=== PATIENT | male | born 1975 | race Caucasian/White ===

== ENCOUNTER 2020-08-24 07:12 | Emergency (ER) | payer OTHER, SELFPAY ==
[2020-08-24] VITALS (8 sets, daily range): BP systolic 118–145; BP diastolic 85–98; PULSE 80–95; RESP 12–18; TEMP 36.8; O2SAT 93–97; BMI 38.6
--- NOTE | 2020-08-24 07:20 | XR_ITS ---
WS: [id number] PORTABLE CHEST HISTORY: chest pain COMPARISON: None available. Lungs are clear and well expanded. No pleural effusion or pneumothorax. Cardiac size: Normal. Mediastinum/Aorta: Normal mediastinum. No osseous abnormality seen. XR/XR chest 1V portable [id number] IMPRESSION: Unremarkable portable chest.
--- NOTE | 2020-08-24 07:21 | ECG_ITS ---
[facility] Test Date: 2020-08-24 Pat Name: Tony Jang Department: Room: Gender: Male Stranner: : 1975 Requested By: Carlos Padgett Order Number: [id number] Reading MD: JEFFREY RYDER Measurements Intervals [place] Rate: 91 P: ND: QRS: 63 QRSD: 101 T: 31 QT: 357 QTc: 440 Interpretive Statements ATRIAL FIBRILLATION POSSIBLE RIGHT VENTRICULAR CONDUCTION DELAY [RSR (QR) IN V1/V2] EARLY REPOLARIZATION [ST ELEVATION WITH NORMALLY INFLECTED T WAVE] ABNORMAL RHYTHM ECG No previous ECG available for comparison Electronically Signed On 08-24-2020 19:58:56 CONTRACT PROJECT MANAGER by JEFFREY RYDER [id number]
--- NOTE | 2020-08-24 07:22 | ED_ITS ---
HPI - Chest Pain General: Chief Complaint: Chest Pain Stated Complaint: CP Time Seen by Provider: 08/24/20 07:14 History of Present Illness: HPI narrative: 45-year-old male presents with complaint of chest pain. States he woke up early this morning had chest pain more on the right side is very positional. He got up and sat up in a chair which did seem to help it somewhat when I examined him today when I laid him down flat exams abdomen significant increase in discomfort which is relieved immediately by sitting up. He did have an episode like this once previously a few weeks ago it resolved over time. He has a known history of atrial fibrillation for which she was previously on Coumadin and he has stopped. He denies any racing heart rate or palpitations at this time there is no radiation of discomfort into the neck or arms or into the back. He has not had any associated shortness of breath or nausea or diaphoresis. MD complaint: chest pain and chest discomfort Pertinent past history: other (Atrial fibrillation) Onset (ago): hour(s) Timing of current episode: episodic Prior episodes: Yes Onset: during rest Pain location: substernal and right chest Pain radiation: none Severity: moderate Quality: tightness and heaviness Relieving factors: nothing Exacerbating factors: nothing Associated symptoms: Deny abdominal pain, diaphoresis, dyspnea, fever(s), leg edema, nausea, palpitations, sense of impending doom, syncope or vomiting Treatment prior to arrival: none Review of Systems Const: Denies: fever(s) or diaphoresis ENMT: Denies: throat pain, ear or mastoid pain, nasal discharge or nasal congestion Card: Denies: palpitations or syncope Resp: Denies: dyspnea GI: Denies: abdominal pain, nausea or vomiting : Denies: flank pain, dysuria, urinary frequency or urinary urgency Skin/Breast: Denies: rash or pruritus [facility] ED PFSH: Medical History (Updated 08/24/20 @ 10:25 by Carlos Phipps DO) Atrial fibrillation Physical Exam Const: COMMON NORMALS: no acute distress GENERAL APPEARANCE: cooperative and comfortable ORIENTATION/CONSCIOUSNESS: Yes awake, Yes oriented to person, Yes oriented to place and Yes oriented to time HENMT: COMMON NORMALS: normocephalic, atraumatic and hearing grossly normal bilaterally HEAD & SCALP: normocephalic and atraumatic Eye: COMMON NORMALS: Equal, round and reactive pupils present, EOMs intact bilaterally, conjunctivae normal and no scleral icterus CONJUNCTIVA: Yes conjunctivae normal PUPIL: Yes Equal, round and reactive pupils present Neck/C-Spine: COMMON NORMALS: no JVD Resp: COMMON NORMALS: normal respiratory effort, No retractions, No use of accessory muscles and clear to auscultation bilaterally AUSCULTATION: clear to auscultation bilaterally Cardio: COMMON NORMALS: no JVD, regular rate, regular rhythm and No murmurs present (Cardio) RATE: regular rate RHYTHM: regular rhythm GI: COMMON NORMALS: Soft to palpation and No hepatosplenomegaly present AUSCULTATION: Yes normoactive bowel sounds PALPATION: Yes Soft to palpation, No Tenderness to palpation present (GI), No Guarding due to palpation present (GI) and Yes No hepatosplenomegaly present Extremity: COMMON NORMALS: normal to inspection, capillary refill normal, no clubbing, cyanosis or edema, no calf tenderness and no pedal edema Neuro: SENSORIUM/ORIENTATION: Yes oriented to person, Yes oriented to place and Yes oriented to time Skin: COMMON NORMALS: no rashes or lesions noted GENERAL SKIN EXAM: no rashes or lesions noted Course Vital Signs: Vital signs: Vital Signs Temperature 98.2 F 08/24/20 07:19 Pulse Rate 90 08/24/20 10:45 Respiratory Rate 18 08/24/20 10:45 Blood Pressure 119/86 08/24/20 10:45 Pulse Oximetry 94 08/24/20 10:45 MDM - Chest Pain MDM Narrative: Medical decision making narrative: Complete resolution of discomfort with GI cocktail. Troponin is negative we will discharge him home we will get him set up for outpatient exercise stress test return if has any problem patient prescribed a PPI Lab Data: Labs: Lab Results 08/24/20 08/24/20 08/24/20 Range/Units 07:50 07:50 07:50 WBC 5.7 (4.0-10.0) 10^3/ uL RBC 4.89 (4.1-5.3) 10^6/u L Hgb 15.6 (11.7-16.6) g/dL Hct 45.9 (42.0-52.0) % MCV 93.9 (80-94) fL MCH 31.9 (28.0-34.0) pg MCHC 34.0 (30.0-36.0) g/dL RDW 12.2 (12.1-15.1) % Plt Count 197 (130-400) 10^3/c mm MPV 9.8 (7.4-10.4) fL Neut % (Auto) 59.7 % Lymph % (Auto) 26.2 % [place] % (Auto) 11.9 % Eos % (Auto) 1.7 % Baso % (Auto) 0.3 % Neut # (Auto) 3.42 (1.8-7.7) 10^3/u L Lymph # (Auto) 1.5 (0.8-4.8) 10^3/u L [place] # (Auto) 0.7 (0.2-0.9) 10^3/u L Eos # (Auto) 0.1 (0.0-0.8) 10^3/u L Baso # (Auto) 0.0 (0.0-0.1) 10^3/u L Nucleated RBC % (a uto) 0 % Nucleated RBCs # 0.0 /100WBC Sodium 135 L (136-145) mmol/L Potassium 4.6 (3.5-5.1) mmol/L Chloride 100 (98-107) mmol/L Carbon Dioxide 25 (22-29) mmol/L Anion Gap 14.6 (5-19) BUN 12 (6-20) mg/dL Creatinine 0.5 L (0.7-1.2) mg/dL GFR Calculation 179.0 H (90-130) mL/min Glucose 122 H (65-115) mg/dL Calculated Osmolal ity 281 L (285-295) mOsm/k g Calcium 9.0 (8.5-10.5) mg/dL Total Bilirubin 0.4 (0.15-1.2) mg/dL AST 40 (0-40) U/L ALT 47 H (0-41) U/L Alkaline Phosphata se 96 (40-130) IU/L Troponin T Baselin e 9 (0-15) ng/L Troponin T 120 Min ely [place] (0-15) ng/L Delta Troponin T (0-10) ABS# Total Protein 7.3 (6.6-8.7) g/dL Albumin 4.6 (3.5-5.2) g/dL Globulin 2.7 (1.3-4.6) g/dL 08/24/20 Range/Units 09:36 WBC (4.0-10.0) 10^3/ uL RBC (4.1-5.3) 10^6/u L Hgb (11.7-16.6) g/dL Hct (42.0-52.0) % MCV (80-94) fL MCH (28.0-34.0) pg MCHC (30.0-36.0) g/dL RDW (12.1-15.1) % Plt Count (130-400) 10^3/c mm MPV (7.4-10.4) fL Neut % (Auto) % Lymph % (Auto) % [place] % (Auto) % Eos % (Auto) % Baso % (Auto) % Neut # (Auto) (1.8-7.7) 10^3/u L Lymph # (Auto) (0.8-4.8) 10^3/u L [place] # (Auto) (0.2-0.9) 10^3/u L Eos # (Auto) (0.0-0.8) 10^3/u L Baso # (Auto) (0.0-0.1) 10^3/u L Nucleated RBC % (a uto) % Nucleated RBCs # /100WBC Sodium (136-145) mmol/L Potassium (3.5-5.1) mmol/L Chloride (98-107) mmol/L Carbon Dioxide (22-29) mmol/L Anion Gap (5-19) BUN (6-20) mg/dL Creatinine (0.7-1.2) mg/dL GFR Calculation (90-130) mL/min Glucose (65-115) mg/dL Calculated Osmolal ity (285-295) mOsm/k g Calcium (8.5-10.5) mg/dL Total Bilirubin (0.15-1.2) mg/dL AST (0-40) U/L ALT (0-41) U/L Alkaline Phosphata se (40-130) IU/L Troponin T Baselin e (0-15) ng/L Troponin T 120 Min ely [place] 7.82 (0-15) ng/L Delta Troponin T -1.18 L (0-10) ABS# Total Protein (6.6-8.7) g/dL Albumin (3.5-5.2) g/dL Globulin (1.3-4.6) g/dL Discharge Plan Discharge Patient Disposition: Home Clinical Impression: Chest pain due to gastrointestinal reflux disease, Atrial fibrillation, Atypical chest pain Condition: Stable Prescriptions: New Protonix 40 mg tablet,delayed release (DR/EC) 40 mg PO DAILY Qty: 30 RF: 0 No Action ibuprofen 200 mg Tablet 400 mg PO PRN RF: 0 Discharge Orders: Discharge Order (Routine); Ordered 08/24/20 Ordered By: Carlos Phipps Referrals: Jj Davies, [Primary Care Provider] - Discharge Diet: Usual diet Discharge Activity: Increase activity as tolerated Activity Restrictions/Additional Instructions: Case management will call to set you up for a exercise stress test. Avoid NSAIDs such as ibuprofen or Aleve naproxen or Motrin. Coding Level of Care Code ED Alliance Manager for [place] Fwd Exam Comprehensive
[2020-08-24 07:58] LABS: Basophils % 0.3 %; Eosinophils # 0.1 10^3/uL (0.0-0.8); Eosinophils % 1.7 %; Hematocrit 45.9 % (42.0-52.0); Hemoglobin 15.6 g/dL (11.7-16.6); Lymphocytes # 1.5 10^3/uL (0.8-4.8); Lymphocytes % 26.2 %; Mean Corpuscular Hemoglobin 31.9 pg (28.0-34.0); Mean Corpuscular Volume 93.9 fL (80-94); Mean Platelet Volume 9.8 fL (7.4-10.4); Monocytes # 0.7 10^3/uL (0.2-0.9); Monocytes % 11.9 %; Neutrophils # 3.42 10^3/uL (1.8-7.7); Neutrophils % 59.7 %; Nucleated Red Blood Cells % 0 %; Platelet Count 197 10^3/cmm (130-400); Red Blood Count 4.89 10^6/uL (4.1-5.3); Red Cell Distribution Width 12.2 % (12.1-15.1); White Blood Count 5.7 10^3/uL (4.0-10.0)
[2020-08-24 08:20] LABS: Alanine Aminotransferase 47 U/L (0-41); Albumin Level 4.6 g/dL (3.5-5.2); Alkaline Phosphatase 96 IU/L (40-130); Anion Gap 14.6 (5-19); Aspartate Amino Transferase 40 U/L (0-40); Blood Urea Nitrogen 12 mg/dL (6-20); Carbon Dioxide 25 mmol/L (22-29); Chloride 100 mmol/L (98-107); Globulin 2.7 g/dL (1.3-4.6); Glucose 122 mg/dL (65-115); Osmolality Calculated 281 mOsm/kg (285-295); Potassium 4.6 mmol/L (3.5-5.1); Sodium 135 mmol/L (136-145); Total Bilirubin 0.4 mg/dL (0.15-1.2); Total Protein 7.3 g/dL (6.6-8.7); Troponin(5th) Baseline 9 ng/L (0-15)
--- NOTE | 2020-08-24 09:21 | ECG_ITS ---
[facility] Test Date: 2020-08-24 Pat Name: Tony Jang Department: Room: Gender: Male Roll Repairer: : 1975 Requested By: Carlos Padgett Order Number: [id number] Reading MD: JEFFREY RYDER Measurements Intervals [place] Rate: 89 P: [place]: QRS: 50 QRSD: 101 T: 24 QT: 392 QTc: 478 Interpretive Statements ATRIAL FIBRILLATION POSSIBLE RIGHT VENTRICULAR CONDUCTION DELAY [RSR (QR) IN V1/V2] ST ELEVATION, PROBABLY EARLY REPOLARIZATION [ST ELEVATION WITH NORMALLY INFLECTED T WAVE] ABNORMAL RHYTHM ECG Compared to ECG 08/24/2020 07:22:33 ST (T wave) deviation now present Electronically Signed On 08-24-2020 20:06:52 DISPLAY SCREEN FABRICATOR by JEFFREY RYDER [id number]
[2020-08-24] MEDS: lidocaine 2% viscous 15 ML, aluminum-mag hydrox-simethicon 30 ML, sucralfate oral liq 1 GM PO (09:52)
[2020-08-24 10:09] LABS: Troponin 5 2HR 7.82 ng/L (0-15)
[2020-08-24 10:17] LABS: Troponin 5 2HR Delta -1.18 ABS# (0-10)
--- NOTE | 2020-08-29 09:18 | DCPLANNER ---
environmental field office manager had message to schedule an outpatient stress test for patient. environmental field office manager faxed order to centralized scheduling. Centralized scheduling will call patient and schedule the test. environmental field office manager will call for appointment information.
--- NOTE | 2020-08-30 10:37 | DCPLANNER ---
Patient has a follow up appointment scheduled for , September 06, 2020 at 1:45 for an out patient stress test. Centralized scheduling will call patient with appointment information.
--- NOTE | 2020-08-30 10:47 | DCPLANNER ---
Patient has an out patient stress test scheduled for August at 1:45. Patient is aware of appointment.
--- NOTE | 2020-09-28 13:07 | DCPLANNER ---
Patient had a stress test scheduled for 09.06.20 it was cancelled
== END 2020-08-24 10:47 | disposition home or self-care (01) ==
PROVIDERS: Emergency Provider Family Medicine; PCP Family Medicine
DX: K21.9 Gastro-esophageal reflux disease without esophagitis (principal); I48.91 Unspecified atrial fibrillation; R07.89 Other chest pain
CPT/HCPCS: 12345; 71045; 80053; 84484; 85025; 93005; 99282; 99284

== ENCOUNTER 2021-05-29 10:12 | Outpatient (CLI) | payer OTHER, SELFPAY ==
[2021-05-29 10:30] VITALS: BP 136/92; PULSE 80; RESP 18; TEMP 36.4; O2SAT 97; BMI 35.6
[2021-05-29 11:09] VITALS: BP 134/92; PULSE 76; RESP 18; O2SAT 95
[2021-05-29 11:59] VITALS: BP 145/95; PULSE 91; RESP 16; TEMP 36.7; O2SAT 98
== END 2021-05-29 10:13 | disposition home or self-care (01) ==
PROVIDERS: PCP Family Medicine; Visit Provider Nurse Practitioner Family
DX: U07.1 COVID-19 (principal)
CPT/HCPCS: 96365